=== PATIENT | male | born 1955 | race Caucasian/White ===

== ENCOUNTER 2018-09-25 10:37 | Emergency (ER) | payer BC | END 2018-09-25 13:40 | disposition home or self-care (01) | LOC: E/R 10:37 | DX: Z47.81 Encounter for orthopedic aftercare following surgical amputation (principal); E11.9 Type 2 diabetes mellitus without complications; Z79.84 Long term (current) use of oral hypoglycemic drugs; Z89.421 Acquired absence of other right toe(s) | CPT/HCPCS: 73630; 73630-LT; 99283-25 ==

== ENCOUNTER 2018-09-26 09:17 | Emergency (ER) | payer BC | END 2018-09-26 11:00 | disposition home or self-care (01) | LOC: E/R 09:17 | DX: L08.9 Local infection of the skin and subcutaneous tissue, unspecified (principal); E11.9 Type 2 diabetes mellitus without complications; Z79.84 Long term (current) use of oral hypoglycemic drugs | CPT/HCPCS: 99282; Z7502 ==

== ENCOUNTER 2018-09-27 10:02 | Emergency (ER) | payer BC | END 2018-09-27 11:21 | disposition home or self-care (01) | LOC: E/R 10:02 | DX: M79.675 Pain in left toe(s) (principal); L84 Corns and callosities; E11.9 Type 2 diabetes mellitus without complications; I10 Essential (primary) hypertension; Z79.84 Long term (current) use of oral hypoglycemic drugs | CPT/HCPCS: 99282; Z7502 ==

== ENCOUNTER 2018-10-24 08:45 | Emergency (ER) | payer BC ==
[2018-10-24] MEDS ORDERED: CEPHALEXIN 500 MG CAP PO (09:30)
[2018-10-24] MEDS ORDERED: TRIMETHOPRIM/SULFAMETHOX (DS) TAB PO (09:30)
== END 2018-10-24 09:27 | disposition home or self-care (01) ==
LOC: FTE 08:45
DX: M79.672 Pain in left foot (principal); E11.9 Type 2 diabetes mellitus without complications; Z79.84 Long term (current) use of oral hypoglycemic drugs
CPT/HCPCS: 99283; Z7502